=== PATIENT | male | born 1945 | race Caucasian/White ===

== ENCOUNTER 2016-08-17 08:21 | Outpatient (CLI) | payer MEDICARE, OTHER ==
[2016-08-17 13:31] LABS: BASOPHILS # (AUTO) 0.1 10^3/uL (0.0-0.1); BASOPHILS % (AUTO) 1.1 %; EOSINOPHILS # (AUTO) 0.1 10^3/uL (0.0-0.7); EOSINOPHILS % (AUTO) 1.5 %; HCT - HEMATOCRIT 39.7 % (42.0-52.0); HGB - HEMOGLOBIN 13.6 g/dL (14.0-18.0); LYMPHOCYTES # (AUTO) 2.5 10^3/uL (1.5-3.5); MEAN CORPUSCULAR HEMOGLOBIN 31.6 pg (27.0-31.0); MEAN CORPUSCULAR HGB CONC 34.3 g/dL (32.0-36.0); MEAN CORPUSCULAR VOLUME 92.1 fL (80.0-94.0); MEAN PLATELET VOLUME 9.1 fL (7.4-11.4); MONOCYTES # (AUTO) 0.4 10^3/uL (0.0-1.0); MONOCYTES % (AUTO) 5.9 %; NEUTROPHILS # (AUTO) 4.3 10^3/uL (1.5-6.6); NEUTROPHILS % (AUTO) 58.5 %; RED BLOOD COUNT 4.31 10^6/uL (4.70-6.10); RED CELL DISTRIBUTION WIDTH 13.4 % (12.0-15.0); UNCORRECTED WHITE BLOOD COUNT 7.4 x10^3/uL; WHITE BLOOD COUNT 7.4 x10^3/uL (4.8-10.8)
[2016-08-17 13:53] LABS: ALBUMIN/GLOBULIN RATIO 1.5 (1.0-2.2); BILIRUBIN,TOTAL 0.9 mg/dL (0.2-1.0); BUN - BLOOD UREA NITROGEN 22 mg/dL (6-20); CALCIUM 8.9 mg/dL (8.5-10.3); CARBON DIOXIDE - CO2 25 mmol/L (21-32); CHLORIDE 107 mmol/L (101-111); CHOL/HDL RATIO 3.2 (<5.0); CHOLESTEROL 181 mg/dL; CREATININE 1.1 mg/dL (0.6-1.2); GFR - MDRD 66 (>89); GLUCOSE 75 mg/dL (70-100); HDL CHOLESTEROL 56 mg/dL; HEMOGLOBIN A1C 0.66 g/dL; LDL/HDL RATIO 1.8 (<3.6); POTASSIUM 3.9 mmol/L (3.5-5.0); SODIUM 141 mmol/L (135-145); TOTAL PROTEIN 6.6 g/dL (6.7-8.2); TRIGLYCERIDES 133 mg/dL; VLDL CHOLESTEROL 27 mg/dL
== END 2016-08-17 08:22 | disposition home or self-care (01) ==
LOC: LAB.WCP 08:21
PROVIDERS: ATTEND Family Medicine
DX: E78.5 Hyperlipidemia, unspecified (principal); E11.9 Type 2 diabetes mellitus without complications; Z79.899 Other long term (current) drug therapy; Z12.5 Encounter for screening for malignant neoplasm of prostate; N18.9 Chronic kidney disease, unspecified
CPT/HCPCS: 36415; 80053; 80061; 83036; 84443; 85025; G0103; 84153

== ENCOUNTER 2016-10-03 08:42 | Outpatient (CLI) | payer MEDICARE, OTHER | END 2016-10-03 08:43 | disposition home or self-care (01) | LOC: SC 08:42 | PROVIDERS: ATTEND Nurse Practitioner Family | DX: G47.33 Obstructive sleep apnea (adult) (pediatric) (principal) | CPT/HCPCS: 99214; G0463; 99212 ==

== ENCOUNTER 2017-03-22 08:00 | Outpatient (CLI) | payer MEDICARE, OTHER ==
[2017-03-22 13:56] LABS: HEMOGLOBIN A1C 0.62 g/dL
[2017-03-22 14:00] LABS: ALBUMIN/GLOBULIN RATIO 1.5 (1.0-2.2); BILIRUBIN,TOTAL 0.9 mg/dL (0.2-1.0); BUN - BLOOD UREA NITROGEN 21 mg/dL (6-20); CALCIUM 8.9 mg/dL (8.5-10.3); CARBON DIOXIDE - CO2 27 mmol/L (21-32); CHLORIDE 104 mmol/L (101-111); CHOL/HDL RATIO 2.6 (<5.0); CHOLESTEROL 173 mg/dL; GFR - MDRD 74 (>89); GLUCOSE 77 mg/dL (70-100); HDL CHOLESTEROL 67 mg/dL; LDL/HDL RATIO 1.2 (<3.6); POTASSIUM 3.6 mmol/L (3.5-5.0); SODIUM 137 mmol/L (135-145); TOTAL PROTEIN 6.5 g/dL (6.7-8.2); TRIGLYCERIDES 114 mg/dL; VLDL CHOLESTEROL 23 mg/dL
== END 2017-03-22 08:01 ==
LOC: LAB.WCP 08:00
PROVIDERS: ATTEND Family Medicine
DX: E78.5 Hyperlipidemia, unspecified (principal); E11.22 Type 2 diabetes mellitus with diabetic chronic kidney disease; N18.9 Chronic kidney disease, unspecified; I12.9 Hypertensive chronic kidney disease with stage 1 through stage 4 chronic kidney disease, or unspecified chronic kidney disease
CPT/HCPCS: 36415; 80053; 80061; 82043; 83036

== ENCOUNTER 2017-10-19 13:07 | Outpatient (CLI) | payer MEDICARE, OTHER | END 2017-10-19 13:08 | disposition home or self-care (01) | LOC: SC 13:07 | PROVIDERS: ATTEND Nurse Practitioner Family | DX: G47.33 Obstructive sleep apnea (adult) (pediatric) (principal) | CPT/HCPCS: 99213; G0463; 99212 ==

== ENCOUNTER 2018-05-02 08:17 | Outpatient (CLI) | payer MEDICARE, OTHER ==
[2018-05-02 12:40] LABS: ALBUMIN 3.9 g/dL (3.2-5.5); ALBUMIN/GLOBULIN RATIO 1.4 (1.0-2.2); ALKALINE PHOSPHATASE 40 IU/L (42-121); ALT ALANINE AMINOTRANSFERASE 18 IU/L (10-60); AST ASPARTATE AMINOTRANSFERASE 30 IU/L (10-42); BILIRUBIN,TOTAL 1.1 mg/dL (0.2-1.0); BUN - BLOOD UREA NITROGEN 29 mg/dL (6-20); CALCIUM 8.8 mg/dL (8.5-10.3); CARBON DIOXIDE - CO2 20 mmol/L (21-32); CHLORIDE 103 mmol/L (101-111); CHOL/HDL RATIO 2.1 (<5.0); CHOLESTEROL 169 mg/dL; CREATININE 1.2 mg/dL (0.6-1.2); GFR - MDRD 60 (>89); GLUCOSE 196 mg/dL (70-100); HDL CHOLESTEROL 79 mg/dL; LDL CHOLESTEROL,CALCULATED 79 mg/dL; SODIUM 135 mmol/L (135-145); TOTAL PROTEIN 6.7 g/dL (6.7-8.2); VLDL CHOLESTEROL 11 mg/dL
[2018-05-02 12:49] LABS: HB2 TOTAL 14.9 g/dL; HEMOGLOBIN A1C 0.59 g/dL; HEMOGLOBIN A1C % 5.8 % (4.6-6.2)
== END 2018-05-02 08:18 | disposition home or self-care (01) ==
LOC: LAB.WCP 08:17
PROVIDERS: ATTEND Family Medicine
DX: E78.5 Hyperlipidemia, unspecified (principal); E11.22 Type 2 diabetes mellitus with diabetic chronic kidney disease; I12.9 Hypertensive chronic kidney disease with stage 1 through stage 4 chronic kidney disease, or unspecified chronic kidney disease; N18.9 Chronic kidney disease, unspecified
CPT/HCPCS: 36415; 80053; 80061; 82043; 83036; 83721

== ENCOUNTER 2018-10-15 08:33 | Day surgery (SDC) | payer MEDICARE, OTHER ==
[2018-10-15] MEDS ORDERED: LACTATED RINGERS 1,000 ML IV ONE ×2 (09:07→10:46)
--- NOTE | 2018-10-15 09:41 | ANESTHESIA ---
Pre-Anesthesia VS, & Labs - Diagnosis Screening - Procedure Colonscopy Vital Signs: Temp Pulse Resp BP Pulse Ox 36.5 C 74 16 124/85 H 96 10/15/18 08:54 10/15/18 08:54 10/15/18 08:54 10/15/18 08:54 10/15/18 08:54 Height 5 ft 5 in Weight (kg) 94.5 kg Body Mass Index 36.4 - NPO >8 hours - Lab Results Current Lab Results: Laboratory Tests 10/15/18 09:02: POC Whole Bld Glucose 93 Home Medications and Allergies Home Medications: Ambulatory Orders Aspirin [Aspirin EC] 81 mg PO DAILY 10/05/18 Benazepril HCl 5 mg PO DAILY 10/05/18 Celecoxib [CeleBREX] 200 mg PO DAILYWM 10/05/18 Insulin Glargine,Hum.rec.anlog [Basaglar Kwikpen U-100] 20 unit SUBQ QPM 10/05/18 Lovastatin 10 mg PO DAILY 10/05/18 Metformin HCl [Metformin HCl ER] 1,000 mg PO BIDWM 10/05/18 Metoprolol Succinate 25 mg PO QPM 10/05/18 Sildenafil Citrate [Sildenafil] 20 mg PO ONCE PRN 10/05/18 Aspirin [Aspirin EC] 81 mg PO DAILY 10/05/18 Benazepril HCl 5 mg PO DAILY 10/05/18 Celecoxib [CeleBREX] 200 mg PO DAILYWM 10/05/18 Insulin Glargine,Hum.rec.anlog [Basaglar Kwikpen U-100] 20 unit SUBQ QPM 10/05/18 Lovastatin 10 mg PO DAILY 10/05/18 Metformin HCl [Metformin HCl ER] 1,000 mg PO BIDWM 10/05/18 Metoprolol Succinate 25 mg PO QPM 10/05/18 Sildenafil Citrate [Sildenafil] 20 mg PO ONCE PRN 10/05/18 Allergies/Adverse Reactions: Allergies Allergy/AdvReac Type Severity Reaction Status Date / Time No Known Drug Allergies Allergy Verified 10/05/18 13:43 Anes History & Medical History - Anesthetic History Anesthesia Complications: reports: No previous complications Family history of Anesthesia Complications: Denies Family history of Malignant Hyperthermia: Denies - Medical History Cardiovascular: reports: Hypertension, High cholesterol Pulmonary: reports: Asthma, Sleep apnea, CPAP use Gastrointestinal: reports: None Urinary: reports: Kidney stones Neuro: reports: None Musculoskeletal: reports: Osteoarthritis, Chronic back pain, Other Endocrine/Autoimmune: reports: Type 2 diabetes Blood Disorders: reports: None Skin: reports: None Smoking Status: Former smoker Psychosocial: reports: No issues indicated - Surgical History General: Colonoscopy Eyes Ears Nose Throat (EENT): Tonsil/Adenoidectomy Exam General: Alert, Oriented x3, Cooperative Dental: WNL Mouth Opening: Greater than 4 Fingerbreadths Neck Mobility: Normal Mallampati classification: I Thyromental Distance: greater than 6 cm Respiratory: Lungs clear Cardiovascular: Regular rate Neurological: Normal speech Mental/Cognitive Status: Alert/Oriented X3 Cognitive Status: Within normal limits Plan Anesthesia Type: MAC Consent for Procedure(s) Verified and Reviewed: Yes Code Status: Attempt Resuscitation ASA classification: 2-Mild systemic disease Is this case an emergency?: No
[2018-10-15] MEDS ORDERED: PROPOFOL 200 MG/20 ML VIAL IVP ONE (10:28)
[2018-10-15] MEDS ORDERED: LIDOCAINE-MPF 2% 5 ML VIAL IM ONE (10:28)
[2018-10-15] MEDS ORDERED: PHENYLEPHRINE 50 MG/5 ML VIAL IV ONE (10:28)
[2018-10-15] MEDS ORDERED: MIDAZOLAM 2 MG/2 ML VIAL IVP ONE (10:28)
[2018-10-15 11:32] VITALS: BP 117/57
== END 2018-10-15 08:34 | disposition home or self-care (01) ==
LOC: SDS 08:33
PROVIDERS: ATTEND Internal Medicine Gastroenterology
PROC: 0DJD8ZZ Inspection of Lower Intestinal Tract, Via Natural or Artificial Opening Endoscopic (ICD-10-PCS; principal; 2018-10-15 10:00)
DX: Z12.11 Encounter for screening for malignant neoplasm of colon (principal); K57.30 Diverticulosis of large intestine without perforation or abscess without bleeding; G47.30 Sleep apnea, unspecified; I10 Essential (primary) hypertension; J45.909 Unspecified asthma, uncomplicated; E11.9 Type 2 diabetes mellitus without complications; Z79.4 Long term (current) use of insulin; Z87.891 Personal history of nicotine dependence
CPT/HCPCS: G0121; J7120

== ENCOUNTER 2018-11-01 08:41 | Outpatient (CLI) | payer MEDICARE, OTHER ==
[2018-11-01 09:50] VITALS: BP 108/60
--- NOTE | 2018-11-01 09:50 | SLEEP CARE CONSULTATION ---
Information from patient questionnaire entered by Elza Feldman. I have reviewed and concur with the information entered by Elza Feldman. This document represents the service I personally performed and the decisions made by me, Mary Ann Dennis, RN, MSN, LACING STRING CUTTER. History of Present Illness Previous diagnosis: Severe, Obstructive Sleep Apnea-Hypopnea Syndrome AHI: 54.2 Reason for CPAP/BiPAP follow up: annual Equipment type: CPAP Equipment obtained from: [facility] [employer] Mask style: Nasal Mask brand: Respironics Backup mask available: Yes Last cushion change: 2 weeks ago HPI additional information: Changes since last seen is an increase in back pain from his spinal stenosis and his back specialist advised him to try losing weight before any other other treatment modalities. This seems to be helping. Colonscopy recently was negative. He had some vision changes while playing golf and other symptoms. He was advised to go to ER and tests completed and advised to see silver wrapper. A holter monitor was completed and showed his heart racing intermittently and medications adjusted. No further incidents. CPAP Compliance Data - Data Reviewed with Patient Average duration of nightly device use: 6.3 Compliance rate %: 98.9 (180 days) Current pressure setting (cmH2O): 12 Average residual AHI: 4.8 Average large leak: 48 mins 48 sec Subjective Patient concerns: denies: aerophagia, mask discomfort, air blowing in eyes, mask leak noise, condensation in mask/hose, nasal congestion, dry mouth, nose, throat (he does not use the humidity as easier with travel), epistaxis Observed to snore while using device: No On therapy, patient: reports: sleeping better, awakening more refreshed, being more awake and alert during the day, more rested overall. denies: drowsiness while driving Initial [place] Sleepiness Scale score: 6 Current [place] Sleepiness Scale score: 7 Review of Systems Review of systems same as previous: Yes Cardiovascular: reports: high blood pressure Musculoskeletal: reports: back pain Allergies and Home Medications Known drug allergies: No Home medication list reviewed: Yes Allergy and home medication list: Aspirin EC 81mg tab one daily Multivitamin Centrum Silver Tab one daily Lovastatin 10mg tab one daily Benazapril HCL 5mg tab one daily in the am Metformin HCL 500mg tab two twice daily Basaglar Kwikpen 100 unit/ml SQ solution Inject 20units SQ daily in the pm Metoprolol 25 mg tab daily in pm Physical Exam Blood Pressure: 108/60 Cuff size: long Heart Rate: 60 O2 Saturation: 97 Height: 5 ft 6 in Weight (kg): 97.341 kg (lost 16 pounds) Body Mass Index: 34.6 BMI Classification: Class 1 Impression and Plan 1. Obstructive Sleep Apnea-Hypopnea Syndrome, severe , with good treatment compliance and good apnea control. On CPAP therapy, there is improved sleep quality and continues to feel more rested overall. For supply concerns, I informed that he can transfer his DME supplier. I will have my tenant relations coordinator inform him of his choices. At that time I will also update his CPAP as if is over 5 years old with a DWO prescription. I will also increase his CPAP pressure to [id number] as his residual AHI is intermittently elevated above normal. Currently he is experiencing mask leaks that may be from not changing cushion regularly or cleaning cushion regularly. Thus it will elevate his AHI intermittently. He is advised to change cushion more often, and to wash mask daily with wipe or soap and water when he awakens and brushes his teeth. A supply replacement schedule given for reference. If pressure change is uncomfortable, he was advised of symptoms to report for pressure adjustment. Patient's apnea severity and rationale for treatment to reduce apnea, improve sleep quality and reduce cardiovascular and cerebrovascular events was reviewed. I also reviewed the benefit of consistent device use of CPAP for hypertension, diabetes. Plan Transfer To new [facility] and update CPAP with new pressure of [id number]. Notify me if snoring with the mask or feeling that the pressure is too much or too little. Clean mask daily and change more frequently. Return for follow-up one month after new device, or sooner if concerns arise. I spent 100% of this 30 minute visit face to face with the patient with greater than 50% of this was spent time counseling the patient and coordination of care.
== END 2018-11-01 08:42 | disposition home or self-care (01) ==
LOC: SC 08:41
PROVIDERS: ATTEND Nurse Practitioner Family
DX: G47.33 Obstructive sleep apnea (adult) (pediatric) (principal)
CPT/HCPCS: 99214; G0463; 99212

== ENCOUNTER 2019-02-07 08:33 | Outpatient (CLI) | payer MEDICARE, OTHER ==
[2019-02-07 09:24] VITALS: BP 120/60
--- NOTE | 2019-02-07 09:24 | SLEEP CARE CONSULTATION ---
Information from patient questionnaire entered by Elza Feldman. I have reviewed and concur with the information entered by Elza Feldman. This document represents the service I personally performed and the decisions made by me, Mary Ann Dennis, RN, MSN, EVENT ATTENDANT. History of Present Illness Previous diagnosis: Severe, Obstructive Sleep Apnea-Hypopnea Syndrome AHI: 54.2 Reason for follow up: first compliance after device update Equipment type: CPAP Equipment obtained from: [employer] Mask style: Nasal Mask brand: RespirNutshellMails CPAP Compliance Data - Data Reviewed with Patient Average duration of nightly device use: 7.5 Compliance rate %: 97 Current pressure setting (cmH2O): 4-13 Average residual AHI: 3.8 Subjective Patient concerns: reports: other (takes a while to get to comfortable pressure - ). denies: aerophagia, mask discomfort, air blowing in eyes, mask leak noise, condensation in mask/hose, nasal congestion, dry mouth, nose, throat, epistaxis Observed to snore while using device: No Current pressure setting perceived as: too low (too low at initiation) On therapy, patient: reports: sleeping better, awakening more refreshed, being more awake and alert during the day, more rested overall Initial [place] Sleepiness Scale score: 9 Current [place] Sleepiness Scale score: 5 Allergies and Home Medications Known drug allergies: No Home medication list reviewed: Yes Allergy and home medication list: Aspirin EC 81mg tab one daily Multivitamin Centrum Silver Tab one daily Lovastatin 10mg tab one daily Benazapril HCL 5mg tab one daily Metformin HCL 500mg tab two twice daily Basaglar Kwikpen 100 unit/ml SQ solution Inject 20units SQ daily in the pm Metoprolol Celebrex 25mg tab one daily 200mg cap one daily Review of Systems Review of systems same as previous: Yes Physical Exam Blood Pressure: 120/60 Cuff size: long Heart Rate: 66 O2 Saturation: 98 Height: 5 ft 6 in Weight: 213 lb Weight change since last visit: 1.4 pounds Body Mass Index: 34.3 BMI Classification: Obesity Class 1 Impression and Plan 1. Obstructive Sleep Apnea-Hypopnea Syndrome, severe, with good treatment compliance and good apnea control. On CPAP therapy, the patient has better sleep quality and is more rested overall. Since the pressure was ordered at [id number] but set at [id number]. I will change it to [id number] to get to goal pressure quicker and ease of initiation of therapy for patient. This should accommodate his plans to lose about in the next year. Symptoms to report discussed for further pressure adjustment. He is to contact me if the pressure change does not resolve ease of pressure initiation or is uncomfortable. We also looked at the BMI chart and 20 more pounds should bring him from class 2 obesity to overweight BMI of 29. I discussed how the goal in weight loss to reduce cardiometabolic health risks is to reduce central obesity. Patient's apnea severity and rationale for treatment to reduce apnea, improve sleep quality and reduce cardiovascular and cerebrovascular events was reviewed. I also reviewed the benefit of consistent device use of CPAP for hypertension, diabetes. * * Change CPAP pressure to 11-14 cmH2O * Notify me if snoring with mask or feeling that the pressure is too much or too little * Continue to lose weight * Return for follow up in 1 year , or sooner if concerns arise I spent 100% of this 20 minute visit face to face with the patient with greater than 50% of this was spent time counseling the patient and coordination of care.
== END 2019-02-07 08:34 ==
LOC: SC 08:33
PROVIDERS: ATTEND Nurse Practitioner Family
DX: G47.33 Obstructive sleep apnea (adult) (pediatric) (principal); E66.9 Obesity, unspecified; Z68.34 Body mass index [BMI] 34.0-34.9, adult
CPT/HCPCS: 99212; 99213

== ENCOUNTER 2019-11-04 07:46 | Outpatient (CLI) | payer MEDICARE, OTHER ==
[2019-11-04 11:56] LABS: BASOPHILS # (AUTO) 0.1 10^3/uL (0.0-0.1); BASOPHILS % (AUTO) 1.2 %; EOSINOPHILS # (AUTO) 0.2 10^3/uL (0.0-0.7); EOSINOPHILS % (AUTO) 3.5 %; HGB - HEMOGLOBIN 13.7 g/dL (14.0-18.0); LYMPHOCYTES # (AUTO) 1.9 10^3/uL (1.5-3.5); LYMPHOCYTES % (AUTO) 37.5 %; MEAN CORPUSCULAR HEMOGLOBIN 31.2 pg (27.0-31.0); MEAN CORPUSCULAR HGB CONC 32.2 g/dL (32.0-36.0); MEAN CORPUSCULAR VOLUME 96.8 fL (80.0-94.0); MEAN PLATELET VOLUME 11.2 fL (7.4-11.4); MONOCYTES # (AUTO) 0.4 10^3/uL (0.0-1.0); MONOCYTES % (AUTO) 7.3 %; NEUTROPHILS # (AUTO) 2.6 10^3/uL (1.5-6.6); NEUTROPHILS % (AUTO) 49.9 %; PLT - PLATELET COUNT 151 10^3/uL (130-450); RED BLOOD COUNT 4.39 10^6/uL (4.70-6.10); RED CELL DISTRIBUTION WIDTH 13.7 % (12.0-15.0); WHITE BLOOD COUNT 5.2 x10^3/uL (4.8-10.8)
[2019-11-04 12:55] LABS: CREATININE,URINE 272.4 mg/dL; MICROALBUM/CREATININE RATIO,UR 2.6 ug/mg (<30.0); MICROALBUMIN,URINE 0.7 mg/dL (0-300.0)
[2019-11-04 13:04] LABS: ALBUMIN/GLOBULIN RATIO 1.7 (1.0-2.2); ALKALINE PHOSPHATASE 37 IU/L (42-121); ALT ALANINE AMINOTRANSFERASE 16 IU/L (10-60); AST ASPARTATE AMINOTRANSFERASE 28 IU/L (10-42); BUN - BLOOD UREA NITROGEN 28 mg/dL (6-20); CALCIUM 9.3 mg/dL (8.5-10.3); CARBON DIOXIDE - CO2 26 mmol/L (21-32); CHLORIDE 105 mmol/L (101-111); CHOL/HDL RATIO 1.9 (<5.0); CHOLESTEROL 154 mg/dL; CREATININE 1.1 mg/dL (0.6-1.2); HDL CHOLESTEROL 79 mg/dL; LDL CHOLESTEROL,CALCULATED 61 mg/dL; LDL/HDL RATIO 0.8 (<3.6); SODIUM 141 mmol/L (135-145); TOTAL PROTEIN 6.4 g/dL (6.7-8.2); VLDL CHOLESTEROL 14 mg/dL
[2019-11-04 13:13] LABS: GLUCOSE 59 mg/dL (70-100)
[2019-11-04 13:59] LABS: HB2 TOTAL 14.4 g/dL; HEMOGLOBIN A1C 0.47 g/dL; HEMOGLOBIN A1C % 5.1 % (4.6-6.2)
== END 2019-11-04 23:59 | disposition home or self-care (01) ==
LOC: LAB.WCP 07:46
PROVIDERS: ATTEND Family Medicine
DX: E11.9 Type 2 diabetes mellitus without complications (principal); Z12.5 Encounter for screening for malignant neoplasm of prostate; E78.5 Hyperlipidemia, unspecified
CPT/HCPCS: 36415; 80053; 80061; 82043; 82570; 83036; 84443; 85025; G0103; 83721; 84153

== ENCOUNTER 2020-02-27 13:10 | Outpatient (CLI) | payer MEDICARE, OTHER ==
--- NOTE | 2020-02-27 10:31 | SLEEP CARE CONSULTATION ---
Information from patient questionnaire entered by Elza Feldman. I have reviewed and concur with the information entered by Elza Feldman. This document represents the service I personally performed and the decisions made by me, Mary Ann Dennis, RN, MSN, FINANCE BROKER. History of Present Illness Service Date and Time: 02/27/2020 09 Previous diagnosis: Severe, Obstructive Sleep Apnea-Hypopnea Syndrome AHI: 54.2 (in 2010) Reason for follow up: annual (last seen 01/2019) Equipment type: CPAP Equipment obtained from: [employer] (getting supplies as needed) Mask style: Nasal Mask brand: Respironics (wisp) Backup mask available: Yes (old mask) Last cushion change: 1 week ago Prior sleep studies: Yes Year and Where: 2010 - [facility] Type of Sleep Study: Polysomnography CPAP Compliance Data - Data Reviewed with Patient Average duration of nightly device use: 6 hr 50 min Compliance rate %: 100 (180 days) Current pressure setting (cmH2O): 4-13 Humidity settin Average residual AHI: 3.9 Subjective Patient concerns: reports: nasal congestion (rare / every 1-2 months). denies: aerophagia, mask discomfort, air blowing in eyes, mask leak noise, condensation in mask/hose, dry mouth, nose, throat, epistaxis Observed to snore while using device: No Current pressure setting perceived as: too low (at initiation of treatment) On therapy, patient: reports: sleeping better, awakening more refreshed, being more awake and alert during the day, more rested overall. denies: drowsiness while driving Initial [place] Sleepiness Scale score: 9 (in 2010) Current [place] Sleepiness Scale score: 2 Allergies and Home Medications Known drug allergies: No Home medication list reviewed: Yes (no changes except reduction of Basilar insulin & stopped celebrex/ vitamin) Review of Systems Review of systems same as previous: Yes Physical Exam Height: 5 ft 6 in Weight: 190 lb (home weight) Weight change since last visit: lost 23 pounds Body Mass Index: 30.7 BMI Classification: Obese Impression and Plan 1. Obstructive Sleep Apnea-Hypopnea Syndrome, severe, with good treatment compliance and good apnea control. On CPAP therapy, the patient has better sleep quality and is more rested overall. However, he is experiencing air hunger at initiation of treatment. Thus the pressure will be changed to [id number]. Patient to contact me if the pressure is insufficient or uncomfortable. He continues to lose weight. I discussed how this can benefit his blood pressure and his diabetes. He has been able to reduce his insulin requirements with weight loss. Currently patients BMI is 30.7 obesity class. We discussed how obesity increases the risk of apnea, CPAP pressure requirements and overall health risks especially cardiovascular and diabetes. The patient's new CPAP pressure range should accommodate some weight loss. Symptoms to report for additional pressure adjustment discussed.Patient's apnea severity and rationale for treatment to reduce apnea, improve sleep quality and reduce cardiovascular and cerebr ovascular events was reviewed. I also reviewed the benefit of consistent device use of CPAP for hypertension, diabetes. * * Change auto CPAP pressure to 7-13 cmH2O * Notify me if snoring with mask or feeling that the pressure is too much or too little * Continue to lose weight * Call this office if any problems using CPAP * Return for follow up in year , or sooner if concerns arise Visit Type: [facility]health [facility] Patient Location: Home Location of Provider: Home Patient agrees and consents to this telehealth visit type: Yes Patient agrees to have their insurance billed: Yes Time Spent with Patient (minutes): 18 after poor initial connections corrected. Provider Statement: I spent 100% of the Telehealth Video Call with the patient with greater than 50% spent counseling the patient and coordination of care.
== END 2020-02-27 13:11 | disposition home or self-care (01) ==
LOC: SC 13:10
PROVIDERS: ATTEND Nurse Practitioner Family
DX: G47.33 Obstructive sleep apnea (adult) (pediatric) (principal); E66.9 Obesity, unspecified; Z68.30 Body mass index [BMI] 30.0-30.9, adult

== ENCOUNTER 2020-06-08 08:51 | Outpatient (CLI) | payer MEDICARE, OTHER ==
[2020-06-08 13:27] LABS: CREATININE,URINE 149.3 mg/dL; MICROALBUMIN,URINE 0.3 mg/dL (0-300.0)
[2020-06-08 13:53] LABS: CALCIUM 8.9 mg/dL (8.5-10.3); CREATININE 1.1 mg/dL (0.6-1.2); POTASSIUM 4.2 mmol/L (3.5-5.0)
[2020-06-08 14:13] LABS: ESTIMATED AVERAGE GLUCOSE 114 mg/dL (70-100); HEMOGLOBIN A1c% 5.6 % (4.27-6.07)
== END 2020-06-08 23:59 | disposition home or self-care (01) ==
LOC: LAB.WCP 08:51
PROVIDERS: ATTEND Family Medicine
DX: E11.9 Type 2 diabetes mellitus without complications (principal)
CPT/HCPCS: 36415; 80048; 82043; 82570; 83036

== ENCOUNTER 2020-12-07 08:06 | Outpatient (CLI) | payer MEDICARE, OTHER ==
[2020-12-07 11:59] LABS: BASOPHILS # (AUTO) 0.1 10^3/uL (0.0-0.1); BASOPHILS % (AUTO) 1.4 %; EOSINOPHILS # (AUTO) 0.2 10^3/uL (0.0-0.7); EOSINOPHILS % (AUTO) 3.5 %; HCT - HEMATOCRIT 44.3 % (42.0-52.0); HGB - HEMOGLOBIN 14.1 g/dL (14.0-18.0); LYMPHOCYTES # (AUTO) 2.3 10^3/uL (1.5-3.5); LYMPHOCYTES % (AUTO) 40.4 %; MEAN CORPUSCULAR HEMOGLOBIN 30.6 pg (27.0-31.0); MEAN CORPUSCULAR HGB CONC 31.8 g/dL (32.0-36.0); MEAN CORPUSCULAR VOLUME 96.1 fL (80.0-94.0); MEAN PLATELET VOLUME 10.9 fL (7.4-11.4); MONOCYTES # (AUTO) 0.5 10^3/uL (0.0-1.0); MONOCYTES % (AUTO) 8.5 %; NEUTROPHILS # (AUTO) 2.6 10^3/uL (1.5-6.6); NEUTROPHILS % (AUTO) 45.8 %; PLT - PLATELET COUNT 141 10^3/uL (130-450); RED BLOOD COUNT 4.61 10^6/uL (4.70-6.10); RED CELL DISTRIBUTION WIDTH 13.8 % (12.0-15.0); WHITE BLOOD COUNT 5.7 x10^3/uL (4.8-10.8)
[2020-12-07 12:13] LABS: ESTIMATED AVERAGE GLUCOSE 120 mg/dL (70-100); HEMOGLOBIN A1c% 5.8 % (4.27-6.07)
[2020-12-07 12:47] LABS: ALBUMIN 4.1 g/dL (3.2-5.5); ALBUMIN/GLOBULIN RATIO 1.7 (1.0-2.2); ALKALINE PHOSPHATASE 35 IU/L (42-121); ALT ALANINE AMINOTRANSFERASE 16 IU/L (10-60); AST ASPARTATE AMINOTRANSFERASE 28 IU/L (10-42); BILIRUBIN,TOTAL 0.9 mg/dL (0.2-1.0); BUN - BLOOD UREA NITROGEN 24 mg/dL (6-20); CALCIUM 9.2 mg/dL (8.5-10.3); CARBON DIOXIDE - CO2 28 mmol/L (21-32); CHLORIDE 102 mmol/L (101-111); CHOL/HDL RATIO 2.7 (<5.0); CHOLESTEROL 194 mg/dL; CREATININE 1.1 mg/dL (0.6-1.2); GFR - MDRD 65 (>89); GLUCOSE 88 mg/dL (70-100); HDL CHOLESTEROL 72 mg/dL; LDL CHOLESTEROL,CALCULATED 101 mg/dL; LDL/HDL RATIO 1.4 (<3.6); POTASSIUM 3.8 mmol/L (3.5-5.0); SODIUM 142 mmol/L (135-145); TOTAL PROTEIN 6.5 g/dL (6.7-8.2); TRIGLYCERIDES 107 mg/dL; VLDL CHOLESTEROL 21 mg/dL
== END 2020-12-07 23:59 | disposition home or self-care (01) ==
LOC: LAB.WCP 08:06
PROVIDERS: ATTEND Family Medicine
DX: E11.9 Type 2 diabetes mellitus without complications (principal); Z12.5 Encounter for screening for malignant neoplasm of prostate
CPT/HCPCS: 36415; 80053; 80061; 83036; 85025; G0103; 83721; 84153

== ENCOUNTER 2021-06-10 08:25 | Outpatient (CLI) | payer MEDICARE, BC ==
[2021-06-10 09:09] VITALS: BP 139/77
--- NOTE | 2021-06-10 09:09 | SLEEP CARE CONSULTATION ---
Information from patient questionnaire entered by Tiffany Braswell MA. I have reviewed and concur with the information entered by Tiffany Braswell MA. This document represents the service I personally performed and the decisions made by , Payal Iqbal ARNP. History of Present Illness Service Date and Time: 06/10/2021 0825 Previous diagnosis: Severe, Obstructive Sleep Apnea-Hypopnea Syndrome AHI: 54.2 (in 2010) Reason for follow up: annual (LAST SEEN 02/2020) Equipment type: CPAP Equipment obtained from: [employer] (getting supplies as needed) Mask style: Nasal Backup mask available: Yes (old mask) Last cushion change: 1 week [facility] HPI additional information: HAY BRAMBILA was diagnosed to have severe, AHI 54.2, obstructive sleep apnea- hypopnea syndrome and returned today for CPAP therapy annual follow-up. Sleep Study - Results Type of Sleep Study: Polysomnography [facility] Yes [email or web address] Compliance Data - Data Reviewed with Patient Average duration of nightly device use: 6 hours 52 minutes Compliance rate %: 98 Current pressure setting (cmH2O): 4-13 Average residual AHI: 3.3 Central apnea: .9 Obstructive apnea: .5 Average large leak: 24.5 Subjective Missed days of use due to: reports: travel Patient concerns: reports: air blowing in eyes (just needs adjustment). denies: aerophagia, mask discomfort, mask leak noise, condensation in mask/hose, nasal congestion, dry mouth, nose, throat, epistaxis Observed to snore while using device: No Current pressure setting perceived as: comfortable On therapy, patient: reports: sleeping better, awakening more refreshed, being more awake and alert during the day, more rested overall. denies: drowsiness while driving Initial [place] Sleepiness Scale score: 9 (in 2010) Current [place] Sleepiness Scale score: 4 (05/2021) Allergies and Home Medications Known drug allergies: No Drug allergies reviewed: Yes Home medication list reviewed: Yes (no changes) Allergy and home medication list: Allergies No Known Drug Allergies Allergy (Verified 10/05/18 13:43) Review of Systems Review of systems same as previous: Yes (no changes) Physical Exam Vital signs obtained and entered by: Stacey BRASWELL CMA DARVIN Blood Pressure: 139/77 (RIGHT, PULSE 61, RESP 18,) Cuff size: wrist Heart Rate: 60 O2 Saturation: 95 (N95) Height: 5 ft 6 in Weight: 205 lb Weight change since last visit: 15 lb gain Body Mass Index: 33.0 BMI Classification: Obese Impression and Plan 1. Obstructive Sleep Apnea-Hypopnea Syndrome, severe, with good treatment compliance and good apnea control. On CPAP therapy, the patient has better sleep quality and is more rested overall. Patient the pressure is fine but he would like to to have it start higher the beginning of the night. He states he would be comfortable starting at the higher pressure because he does not need the ramping up of the pressure. I will adjust his pressure to 9-13 cmH2O to reflect the pressures he is using, 95% average being 9.8 and max 11.1. I will also have them change the startup ramp pressure to 8 cmH2O. Patient's apnea severity and rationale for treatment to reduce apnea, improve sleep quality and reduce cardiovascular and cerebrovascular events was reviewed. I also reviewed the benefit of consistent device use of CPAP for hypertension and diabetes. 2. Obesity, unspecified. Patient has gained weight. Currently patients BMI is 33.0. Obesity increases the risk of apnea, CPAP pressure requirements and overall health risks especially cardiovascular and diabetes. Thus patient is advised to lose weight. * Increase ramp starting pressure at 8 cmH2O * Change auto CPAP pressure to 9-13 cmH2O * Notify me if snoring with mask or feeling that the pressure is too much or too little * Attempt to lose weight * Call this office if any problems using CPAP * Return for follow up in 1 year, or sooner if concerns arise Counseling Topics: Spare mask, Weight loss health impact Visit Type: In Office Time Spent with Patient (minutes): 13 Provider Statement: I spent 100% of the Face to Face Visit with the patient with greater than 50% spent counseling the patient and coordination of care.
== END 2021-06-10 08:26 | disposition home or self-care (01) ==
LOC: SC 08:25
PROVIDERS: ATTEND Nurse Practitioner Family
DX: G47.33 Obstructive sleep apnea (adult) (pediatric) (principal); E66.9 Obesity, unspecified; Z68.33 Body mass index [BMI] 33.0-33.9, adult
CPT/HCPCS: 99212; G0463

== ENCOUNTER 2021-08-02 07:45 | Outpatient (CLI) | payer MEDICARE, BC ==
[2021-08-02 12:29] LABS: BASOPHILS # (AUTO) 0.1 10^3/uL (0.0-0.1); BASOPHILS % (AUTO) 1.6 %; EOSINOPHILS # (AUTO) 0.2 10^3/uL (0.0-0.7); EOSINOPHILS % (AUTO) 3.1 %; HCT - HEMATOCRIT 43.6 % (42.0-52.0); HGB - HEMOGLOBIN 13.8 g/dL (14.0-18.0); LYMPHOCYTES # (AUTO) 2.2 10^3/uL (1.5-3.5); LYMPHOCYTES % (AUTO) 43.3 %; MEAN CORPUSCULAR HEMOGLOBIN 30.2 pg (27.0-31.0); MEAN CORPUSCULAR HGB CONC 31.7 g/dL (32.0-36.0); MEAN CORPUSCULAR VOLUME 95.4 fL (80.0-94.0); MEAN PLATELET VOLUME 11.2 fL (7.4-11.4); MONOCYTES # (AUTO) 0.5 10^3/uL (0.0-1.0); MONOCYTES % (AUTO) 8.8 %; NEUTROPHILS # (AUTO) 2.2 10^3/uL (1.5-6.6); PLT - PLATELET COUNT 148 10^3/uL (130-450); RED BLOOD COUNT 4.57 10^6/uL (4.70-6.10); RED CELL DISTRIBUTION WIDTH 13.8 % (12.0-15.0); WHITE BLOOD COUNT 5.1 x10^3/uL (4.8-10.8)
[2021-08-02 12:51] LABS: ALBUMIN/GLOBULIN RATIO 1.4 (1.0-2.2); ALKALINE PHOSPHATASE 38 IU/L (42-121); ALT ALANINE AMINOTRANSFERASE 17 IU/L (10-60); AST ASPARTATE AMINOTRANSFERASE 30 IU/L (10-42); BILIRUBIN,TOTAL 1.1 mg/dL (0.2-1.0); BUN - BLOOD UREA NITROGEN 25 mg/dL (6-20); CARBON DIOXIDE - CO2 27 mmol/L (21-32); CHLORIDE 103 mmol/L (101-111); CHOL/HDL RATIO 2.5 (<5.0); CHOLESTEROL 180 mg/dL; CREATININE 1.1 mg/dL (0.6-1.2); GFR - MDRD 65 (>89); GLUCOSE 121 mg/dL (70-100); HDL CHOLESTEROL 73 mg/dL; LDL CHOLESTEROL,CALCULATED 92 mg/dL; LDL/HDL RATIO 1.3 (<3.6); POTASSIUM 3.8 mmol/L (3.5-5.0); SODIUM 140 mmol/L (135-145); TOTAL PROTEIN 6.8 g/dL (6.7-8.2); TRIGLYCERIDES 74 mg/dL; VLDL CHOLESTEROL 15 mg/dL
[2021-08-02 12:55] LABS: CREATININE,URINE 164.3 mg/dL; MICROALBUMIN,URINE 0.5 mg/dL (0-300.0)
[2021-08-02 13:19] LABS: ESTIMATED AVERAGE GLUCOSE 128 mg/dL (70-100); HEMOGLOBIN A1c% 6.1 % (4.27-6.07)
== END 2021-08-02 07:46 | disposition home or self-care (01) ==
LOC: LAB.N 07:45
PROVIDERS: ATTEND Family Medicine
DX: E11.9 Type 2 diabetes mellitus without complications (principal)
CPT/HCPCS: 36415; 80053; 80061; 82043; 82570; 83036; 83721; 85025

== ENCOUNTER 2022-06-02 08:41 | Outpatient (CLI) | payer MEDICARE, BC ==
[2022-06-02 09:18] VITALS: BP 128/62
--- NOTE | 2022-06-02 09:18 | SLEEP CARE CONSULTATION ---
Information from patient questionnaire entered by David Anne. I have reviewed and concur with the information entered by David Anne. This document represents the service I personally performed and the decisions made by , Payal Iqbal ARNP. History of Present Illness Service Date and Time: 06/02/2022 08 Previous diagnosis: Severe, Obstructive Sleep Apnea-Hypopnea Syndrome AHI: 54.2 (in 2010) Reason for follow up: annual (LAST SEEN 06/10/21) Equipment type: CPAP (RESMED Airsense 10 s/u 11/2018) Equipment obtained from: [employer] (getting supplies as needed) Mask style: Nasal (over the nose) Backup mask available: Yes (old mask) Last cushion change: 3 weeks Prior sleep studies: Yes Year and Where: 2010 - [facility] Type of Sleep Study: Polysomnography HPI additional information: HAY BRAMBILA was diagnosed to have severe, AHI 54.2, obstructive sleep apnea- hypopnea syndrome and returned today for CPAP therapy annual follow-up. Sleep Study - Results Type of Sleep Study: Polysomnography Prior sleep studies: Yes Year and Where: 2010 - [facility] CPAP Compliance Data - Data Reviewed with Patient Average duration of nightly device use: 6 HRS 56 MIN Compliance rate %: 99 (12/02/21-05/30/22; 179/180 days used) Current pressure setting (cmH2O): 9-13 Average residual AHI: 3.9 Central apnea: 1.1 Obstructive apnea: 0.5 Subjective Missed days of use due to: reports: travel Patient concerns: reports: air blowing in eyes (just needed adjustment of mask). denies: aerophagia, mask discomfort, mask leak noise, condensation in mask/hose, nasal congestion, dry mouth, nose, throat, epistaxis Observed to snore while using device: No Current pressure setting perceived as: comfortable On therapy, patient: reports: sleeping better, awakening more refreshed, being more awake and alert during the day, more rested overall. denies: drowsiness while driving Initial [place] Sleepiness Scale score: 9 (in 2010) Current [place] Sleepiness Scale score: 3 (06/02/22) Allergies and Home Medications Known drug allergies: No Drug allergies reviewed: Yes Home medication list reviewed: Yes (Novolin N replaces glucophage) Review of Systems Review of systems same as previous: No (cataract surgery, Mar 29, 2022) Physical Exam Vital signs obtained and entered by: DAVID Michel MA Blood Pressure: 128/62 (LEFT ARM ) Cuff size: regular Heart Rate: 68 O2 Saturation: 99 Height: 5 ft 6 in Weight: 216 lb 6.4 oz Weight change since last visit: 11 lb gain Body Mass Index: 34.9 BMI Classification: Obese Impression and Plan 1. Obstructive Sleep Apnea-Hypopnea Syndrome, severe, with good treatment compliance and good apnea control. On CPAP therapy, the patient has better sleep quality and is more rested overall. Patient has significant improvement of their sleep apnea and is satisfied with current CPAP therapy. Patient denies problems with oral dryness, nasal congestion, epistaxis, skin irritation or aerophagia. Patient's apnea severity and rationale for treatment to reduce apnea, improve sleep quality and reduce cardiovascular and cerebrovascular events was reviewed. I also reviewed the benefit of consistent device use of CPAP for hypertension and diabetes. 2. Obesity, unspecified. Currently patients BMI is 34.9. He has gained weight but is trying to increase activity like golfing to help him lose weight. Obesity increases the risk of apnea, CPAP pressure requirements and overall health risks especially cardiovascular and diabetes. Thus patient is advised to continue to try to lose weight. The patient's CPAP pressure range should accommodate some weight loss. Symptoms to report for additional pressure adjustment discussed. * Continue auto CPAP pressure at 9-13 cmH2O * Update supplies * Notify me if snoring with mask or feeling that the pressure is too much or too little * Attempt to lose weight * Call this office if any problems using CPAP * Return for follow up in 1 year, or sooner if concerns arise Counseling Topics: Spare mask, Weight loss health impact Visit Type: In Office Time Spent with Patient (minutes): 20 Provider Statement: I spent 100% of the Face to Face Visit with the patient with greater than 50% spent counseling the patient and coordination of care.
== END 2022-06-02 08:42 | disposition home or self-care (01) ==
LOC: SC 08:41
PROVIDERS: ATTEND Nurse Practitioner Family
DX: G47.33 Obstructive sleep apnea (adult) (pediatric) (principal); E66.9 Obesity, unspecified; Z68.34 Body mass index [BMI] 34.0-34.9, adult
CPT/HCPCS: 99213; G0463; 99212

== ENCOUNTER 2022-08-18 08:57 | Outpatient (CLI) | payer MEDICARE, BC ==
[2022-08-18 11:56] LABS: BASOPHILS # (AUTO) 0.1 10^3/uL (0.0-0.1); EOSINOPHILS % (AUTO) 0.6 %; HCT - HEMATOCRIT 43.2 % (42.0-52.0); HGB - HEMOGLOBIN 13.7 g/dL (14.0-18.0); LYMPHOCYTES # (AUTO) 1.4 10^3/uL (1.5-3.5); LYMPHOCYTES % (AUTO) 20.4 %; MEAN CORPUSCULAR HEMOGLOBIN 30.4 pg (27.0-31.0); MEAN CORPUSCULAR HGB CONC 31.7 g/dL (32.0-36.0); MEAN CORPUSCULAR VOLUME 95.8 fL (80.0-94.0); MEAN PLATELET VOLUME 10.9 fL (7.4-11.4); MONOCYTES # (AUTO) 0.3 10^3/uL (0.0-1.0); MONOCYTES % (AUTO) 4.7 %; NEUTROPHILS # (AUTO) 5.1 10^3/uL (1.5-6.6); NEUTROPHILS % (AUTO) 72.7 %; PLT - PLATELET COUNT 146 10^3/uL (130-450); RED BLOOD COUNT 4.51 10^6/uL (4.70-6.10); RED CELL DISTRIBUTION WIDTH 13.8 % (12.0-15.0)
[2022-08-18 12:04] LABS: CREATININE,URINE 186.9 mg/dL; MICROALBUM/CREATININE RATIO,UR 5.9 ug/mg (<30.0); MICROALBUMIN,URINE 1.1 mg/dL (0-300.0)
[2022-08-18 12:14] LABS: ALBUMIN 4.1 g/dL (3.2-5.5); ALBUMIN/GLOBULIN RATIO 1.6 (1.0-2.2); ALKALINE PHOSPHATASE 33 IU/L (42-121); ALT ALANINE AMINOTRANSFERASE 17 IU/L (10-60); AST ASPARTATE AMINOTRANSFERASE 31 IU/L (10-42); BUN - BLOOD UREA NITROGEN 30 mg/dL (6-20); CALCIUM 8.8 mg/dL (8.5-10.3); CARBON DIOXIDE - CO2 27 mmol/L (21-32); CHLORIDE 105 mmol/L (101-111); CHOLESTEROL 168 mg/dL; GFR - MDRD 73 (>89); GLUCOSE 92 mg/dL (70-100); HDL CHOLESTEROL 83 mg/dL; LDL CHOLESTEROL,CALCULATED 72 mg/dL; LDL/HDL RATIO 0.9 (<3.6); POTASSIUM 3.8 mmol/L (3.5-5.0); SODIUM 139 mmol/L (135-145); TOTAL PROTEIN 6.7 g/dL (6.7-8.2); TRIGLYCERIDES 65 mg/dL; VLDL CHOLESTEROL 13 mg/dL
[2022-08-18 12:26] LABS: THYROID STIMULATING HORMONE 0.99 uIU/mL (0.34-5.60)
[2022-08-18 12:43] LABS: ESTIMATED AVERAGE GLUCOSE 126 mg/dL (70-100)
== END 2022-08-18 08:58 | disposition home or self-care (01) ==
LOC: LAB.N 08:57
PROVIDERS: ATTEND Internal Medicine
DX: I10 Essential (primary) hypertension (principal); E78.5 Hyperlipidemia, unspecified; E11.9 Type 2 diabetes mellitus without complications; I47.1 Supraventricular tachycardia
CPT/HCPCS: 36415; 80053; 80061; 82043; 82570; 83036; 83721; 84443; 85025

== ENCOUNTER 2023-01-02 08:06 | Outpatient (CLI) | payer MEDICARE, BC ==
[2023-01-02 12:21] LABS: CALCIUM 9.4 mg/dL (8.5-10.3); CREATININE 1.2 mg/dL (0.6-1.3); POTASSIUM 3.6 mmol/L (3.5-4.5)
[2023-01-02 12:29] LABS: ESTIMATED AVERAGE GLUCOSE 128 mg/dL (70-100); HEMOGLOBIN A1c% 6.1 % (4.27-6.07)
== END 2023-01-02 08:07 | disposition home or self-care (01) ==
LOC: LAB.N 08:06
PROVIDERS: ATTEND Internal Medicine
DX: E11.9 Type 2 diabetes mellitus without complications (principal)
CPT/HCPCS: 36415; 80048; 83036

== ENCOUNTER 2023-06-15 14:08 | Outpatient (CLI) | payer MEDICARE, BC ==
--- NOTE | 2023-06-15 14:29 | Sleep Patient Instructions ---
Sleep Center Visit Summary - Patient Visit Information Reason for Visit: Annual follow up - Patient Instructions Additional Instructions: You will continue with CPAP therapy with pressure set at 9-13 cmH2O. A supply prescription will be updated with your DME. We encourage you to continue to try to lose weight. Please follow up with the sleep care office in 1 year. - Clinic Information Contact: [facility] [address] [place] [address] [email or web address] T: [phone]
--- NOTE | 2023-06-15 14:31 | SLEEP CARE CONSULTATION ---
Information from patient questionnaire entered by David Anne. I have reviewed and concur with the information entered by David Anne. This document represents the service I personally performed and the decisions made by , Payal Iqbal ARNP. History of Present Illness Service Date and Time: 06/15/2023 1408 Previous diagnosis: Severe, Obstructive Sleep Apnea-Hypopnea Syndrome AHI: 54.2 (in 2010) Reason for follow up: annual (LAST SEEN 05/2022) Equipment type: CPAP (RESMED Airsense 10 s/u 11/2018) Equipment obtained from: [facility] (getting supplies as needed) Mask style: Nasal (over the nose) Backup mask available: Yes Last cushion change: 3-4 days ago Prior sleep studies: Yes Year and Where: 2010 - [facility] Type of Sleep Study: Polysomnography HPI additional information: HAY BRAMBILA was diagnosed to have severe, AHI 54.2, obstructive sleep apnea- hypopnea syndrome and returned today for CPAP therapy annual follow-up. Sleep Study - Results Type of Sleep Study: Polysomnography Prior sleep studies: Yes Year and Where: 2010 - [facility] CPAP Compliance Data - Data Reviewed with Patient Average duration of nightly device use: 6 HRS 55 MINS Compliance rate %: 100 (06/13/22-06/12/23; 364/365 days used) Current pressure setting (cmH2O): 9-13 (avg 12.2) Average residual AHI: 4.2 Central apnea: 1 Obstructive apnea: 0.7 Hypopnea: 1.9 Average large leak: 6.3 L/min Subjective Patient concerns: denies: aerophagia, mask discomfort, air blowing in eyes, mask leak noise, condensation in mask/hose, nasal congestion, dry mouth, nose, throat, epistaxis Observed to snore while using device: No Current pressure setting perceived as: comfortable On therapy, patient: reports: sleeping better, awakening more refreshed, being more awake and alert during the day, more rested overall. denies: drowsiness while driving Initial Logan Sleepiness Scale score: 9 (in 2010) Current Logan Sleepiness Scale score: 4 (06/15/23) Allergies and Home Medications Known drug allergies: No Drug allergies reviewed: Yes Home medication list reviewed: Yes (no changes) Allergy and home medication list: Allergies No Known Drug Allergies Allergy (Verified 06/13/23 15:58) Review of Systems Review of systems same as previous: Yes (NO CHANGE) Physical Exam Vital signs obtained and entered by: DAVID Michel MA Blood Pressure: 143/72 (RIGHT ARM) Cuff size: regular Heart Rate: 65 O2 Saturation: 99 Height: 5 ft 6 in Weight: 209 lb 9.6 oz Weight change since last visit: 7 lb loss Body Mass Index: 33.8 BMI Classification: Obese Impression and Plan 1. Obstructive Sleep Apnea-Hypopnea Syndrome, severe, with good treatment compliance and good apnea control. On CPAP therapy, the patient has better sleep quality and is more rested overall. Patient states everything is doing well he has no issues. Patient has significant improvement of their sleep apnea and is satisfied with current CPAP therapy. Patient denies problems with oral dryness, nasal congestion, epistaxis, skin irritation or aerophagia. Patient's apnea severity and rationale for treatment to reduce apnea, improve sleep quality and reduce cardiovascular and cerebrovascular events was reviewed. I also reviewed the benefit of consistent device use of CPAP for hypertension, diabetes. 2. Obesity, unspecified. Currently patients BMI is 33.8. He has lost weight since his last appointment. Obesity increases the risk of apnea, CPAP pressure requirements and overall health risks especially cardiovascular and diabetes. Thus patient is advised to continue to try to lose weight. * Continue auto CPAP pressure at 9-13 cmH2O * Update supply prescription * Notify me if snoring with mask or feeling that the pressure is too much or too little * Attempt to lose weight * Call this office if any problems using CPAP * Return for follow up in 1 year, or sooner if concerns arise Counseling Topics: Weight loss health impact Prescriptions: Device supplies Follow up with Sleep Care in: 1 year Visit Type: In Office Time Spent with Patient (minutes): 20 Provider Statement: I spent 100% of the Face to Face Visit with the patient with greater than 50% spent counseling the patient and coordination of care.
[2023-06-15 14:37] VITALS: BP 143/72; O2SAT 99
== END 2023-06-15 14:09 | disposition home or self-care (01) ==
LOC: SC 14:08
PROVIDERS: ATTEND Nurse Practitioner Family
DX: G47.33 Obstructive sleep apnea (adult) (pediatric) (principal)
CPT/HCPCS: 99213; G0463; 99212

== ENCOUNTER 2023-08-30 08:21 | Outpatient (CLI) | payer MEDICARE, BC ==
[2023-08-30 11:52] LABS: BASOPHILS # (AUTO) 0.1 10^3/uL (0.0-0.1); BASOPHILS % (AUTO) 0.9 %; EOSINOPHILS # (AUTO) 0.1 10^3/uL (0.0-0.7); EOSINOPHILS % (AUTO) 0.9 %; HGB - HEMOGLOBIN 13.2 g/dL (14.0-18.0); LYMPHOCYTES # (AUTO) 1.6 10^3/uL (1.5-3.5); LYMPHOCYTES % (AUTO) 23.9 %; MEAN CORPUSCULAR HEMOGLOBIN 31.1 pg (27.0-31.0); MEAN CORPUSCULAR VOLUME 94.3 fL (80.0-94.0); MEAN PLATELET VOLUME 10.3 fL (7.4-11.4); MONOCYTES # (AUTO) 0.4 10^3/uL (0.0-1.0); MONOCYTES % (AUTO) 5.6 %; NEUTROPHILS # (AUTO) 4.6 10^3/uL (1.5-6.6); NEUTROPHILS % (AUTO) 68.1 %; PLT - PLATELET COUNT 175 10^3/uL (130-450); RED BLOOD COUNT 4.24 10^6/uL (4.70-6.10); RED CELL DISTRIBUTION WIDTH 13.6 % (12.0-15.0); WHITE BLOOD COUNT 6.8 x10^3/uL (4.8-10.8)
[2023-08-30 12:13] LABS: ALBUMIN 4.3 g/dL (3.2-5.5); ALBUMIN/GLOBULIN RATIO 1.8 (1.0-2.2); ALKALINE PHOSPHATASE 36 IU/L (42-121); ALT ALANINE AMINOTRANSFERASE 12 IU/L (10-60); AST ASPARTATE AMINOTRANSFERASE 24 IU/L (10-42); BILIRUBIN,TOTAL 0.7 mg/dL (0.2-1.0); BUN - BLOOD UREA NITROGEN 23 mg/dL (6-20); CALCIUM 9.8 mg/dL (8.5-10.3); CARBON DIOXIDE - CO2 30 mmol/L (21-32); CHLORIDE 103 mmol/L (101-111); CHOL/HDL RATIO 2.3 (<5.0); CHOLESTEROL 153 mg/dL; CREATININE 1.3 mg/dL (0.6-1.3); GFR - MDRD 54 (>89); GLUCOSE 84 mg/dL (74-104); HDL CHOLESTEROL 66 mg/dL; LDL CHOLESTEROL,CALCULATED 70 mg/dL; LDL/HDL RATIO 1.1 (<3.6); POTASSIUM 3.8 mmol/L (3.5-4.5); SODIUM 140 mmol/L (135-145); TOTAL PROTEIN 6.7 g/dL (6.4-8.9); TRIGLYCERIDES 86 mg/dL (48-352); VLDL CHOLESTEROL 17 mg/dL
[2023-08-30 12:31] LABS: CREATININE,URINE 117.7 mg/dL; MICROALBUM/CREATININE RATIO,UR 6.8 ug/mg (<30.0); MICROALBUMIN,URINE 0.8 mg/dL
[2023-08-30 12:50] LABS: THYROID STIMULATING HORMONE 0.91 uIU/mL (0.34-5.60)
[2023-08-30 13:06] LABS: ESTIMATED AVERAGE GLUCOSE 128 mg/dL (70-100); HEMOGLOBIN A1c% 6.1 % (4.27-6.07)
== END 2023-08-30 08:22 | disposition home or self-care (01) ==
LOC: LAB.N 08:21
PROVIDERS: ATTEND Internal Medicine
DX: E11.9 Type 2 diabetes mellitus without complications (principal); E78.5 Hyperlipidemia, unspecified; I10 Essential (primary) hypertension; I47.10 Supraventricular tachycardia, unspecified
CPT/HCPCS: 36415; 80053; 80061; 82043; 82570; 83036; 83721; 84443; 85025